=== PATIENT | female | born 1990 | race Caucasian/White ===

== ENCOUNTER 2019-08-27 18:43 | Emergency (ER) | payer OTHER, SELFPAY ==
[2019-08-27] MEDS ORDERED: Orphenadrine Citrate 60 MG/2 ML VIAL ONE (19:24)
[2019-08-27] MEDS ORDERED: Ketorolac Tromethamine 30 MG/ML VIAL ONE (19:24)
== END 2019-08-27 19:49 | disposition home or self-care (01) ==
LOC: SCSER 18:43
DX: M43.6 Torticollis (principal)
CPT/HCPCS: 93005; 96372; J1885; J2360